=== PATIENT | female | born 1935 | race Caucasian/White ===

== ENCOUNTER 2019-12-28 05:24 | Day surgery (SDC) ==
[2019-12-23 17:42] LABS: BASO# 0.06 X1000 (0.0-0.2); BASO% 0.7 % (0.0-0.8); EOS% 2.3 % (0.0-10.0); HEMATOCRIT 35.3 % (37.0-47.0); HEMOGLOBIN 11.4 g/dL (12.0-16.0); LYMPH% 29.2 % (20.5-51.1); MCHC 32.3 g/dL (33-37); MCV 95.9 FL (81-99); MONO# 0.63 X1000 (0.11-0.59); MONO% 7.4 % (1.7-9.3); NEUT# 5.16 X1000 (1.4-6.5); NEUT% 60.4 % (42.2-75.2); PLT 321 X1000 (130-400); RBC 3.68 XMIL (4.2-5.4); RDW 14.1 % (11.5-14.5); WBC 8.55 X1000 (4.8-10.8)
--- NOTE | 2019-12-23 17:46 | EKG Report ---
Test Performed on : 12/23/2019 5:23:07 PM Test Reason : PAT Blood Pressure : / mmHG Vent. Rate : 077 BPM Atrial Rate : 077 BPM P-R Int : 124 ms QRS Dur : 086 ms QT Int : 360 ms P-R-T Axes : 082 054 067 degrees QTc Int : 407 ms Normal sinus rhythm. Possible Left atrial enlargement Borderline ECG When compared with ECG of 06-FEB-2012 11:35, Criteria for Anterior infarct are no longer present Confirmed by Den FENG, Yuri Simon ([id number]) on 12/24/2019 7:31:24 AM
[2019-12-23 17:55] LABS: HEMOGLOBIN A1C 5.4 % (4.8-6.0)
[2019-12-23 18:01] LABS: PROTIME 13.3 Seconds (11.0-16.0)
[2019-12-23 18:02] LABS: PTT 29.7 Seconds (22.3-41.8)
[2019-12-23 18:06] LABS: CALCIUM 9.3 mg/dL (8.8-10.2); CREATININE 1.6 mg/dL (0.5-0.9); POTASSIUM 3.9 mmol/L (3.5-5.1)
[2019-12-23 22:28] LABS: URINE SOURCE CLEAN CATCH
[2019-12-23 22:47] LABS: BILIRUBIN URINE NEGATIVE (NEGATIVE); BLOOD URINE TRACE (NEGATIVE); COLOR YELLOW; GLUCOSE URINE NEGATIVE (NEGATIVE); KETONE URINE NEGATIVE (NEGATIVE); LEUKOCYTES URINE NEGATIVE (NEGATIVE); NITRITE URINE NEGATIVE (NEGATIVE); PROTEIN URINE TRACE mg/dL (NEGATIVE); SP GRAVITY URINE 1.025; TURBIDITY URINE CLEAR (CLEAR); UROBILINOGEN URINE NORMAL (NORMAL)
[2019-12-23 23:04] LABS: UR EPITHELIAL CELLS <10 /HPF (<10); URINE BACTERIA NEGATIVE /HPF; URINE RBC <10 /HPF (<10); URINE WBC <10 /HPF (<10)
[2019-12-23 23:12] LABS: URINE CASTS NONE SEEN; URINE CRYSTALS NONE SEEN; URINE SMALL ROUND CELLS NONE SEEN; URINE YEAST PRESENT
[2019-12-28] MEDS ORDERED: REGLAN ONE (05:54)
[2019-12-28] MEDS ORDERED: COLACE ONE (05:54)
[2019-12-28] MEDS ORDERED: PEPCID ONE (05:54)
[2019-12-28] MEDS ORDERED: LR 1,000 ML ONE (05:55)
[2019-12-28] MEDS ORDERED: KEFZOL 1 GM/D5W 1 GM/50 ML IVPB ONE (05:55)
[2019-12-28] MEDS ORDERED: LYRICA ONE (05:55)
[2019-12-28] MEDS ORDERED: CELEBREX ONE (05:55)
[2019-12-28] MEDS ORDERED: DIPRIVAN 1% ONE ×3 (06:38→09:19)
[2019-12-28] MEDS ORDERED: DURAMORPH ONE (06:43)
[2019-12-28] MEDS ORDERED: TORADOL ONE (06:43)
[2019-12-28] MEDS ORDERED: CYKLOKAPRON 1,000 MG/NS 1,000 MG/100 ML IVPB ONE ×2 (06:43→09:02)
[2019-12-28] MEDS ORDERED: SODIUM CHLORIDE 0.9% ONE (06:43)
[2019-12-28] MEDS ORDERED: MARCAINE 0.25% PF ONE (06:43)
[2019-12-28] MEDS ORDERED: EXPAREL 1.3% ONE (06:45)
[2019-12-28] MEDS ORDERED: NEOSPORIN G.U. IRRIGANT ONE (06:45)
[2019-12-28] MEDS ORDERED: FENTANYL ONE (06:45)
[2019-12-28] MEDS ORDERED: DECADRON ONE (09:12)
[2019-12-28] MEDS ORDERED: ZOFRAN ONE (09:12)
[2019-12-28 09:19] LABS: URINE SOURCE CATH
[2019-12-28] MEDS ORDERED: NS 1,000 ML ONE (09:25)
[2019-12-28 09:33] LABS: BILIRUBIN URINE NEGATIVE (NEGATIVE); BLOOD URINE SMALL (NEGATIVE); COLOR YELLOW; GLUCOSE URINE NEGATIVE (NEGATIVE); KETONE URINE NEGATIVE (NEGATIVE); LEUKOCYTES URINE NEGATIVE (NEGATIVE); NITRITE URINE NEGATIVE (NEGATIVE); PH URINE 5.5; PROTEIN URINE NEGATIVE (NEGATIVE); TURBIDITY URINE CLEAR (CLEAR); UROBILINOGEN URINE NORMAL (NORMAL)
[2019-12-28 09:34] LABS: UR EPITHELIAL CELLS <10 /HPF (<10); URINE BACTERIA 1+ /HPF; URINE RBC 20-40 /HPF (<10); URINE WBC <10 /HPF (<10)
--- NOTE | 2019-12-28 09:55 | OPERATIVE NOTE ---
PROCEDURE DATE: 12/28/2019 PREOPERATIVE DIAGNOSIS: Right hip degenerative joint disease. POSTOPERATIVE DIAGNOSIS: Right hip degenerative joint disease. PROCEDURE PERFORMED: Right anterior total hip arthroplasty using [facility], a size 8 standard offset, -4 neck length with a 52 mm hemispherical shell, two 6.5 cancellous screws of 15 and 40 mm, and a 36 mm inside diameter acetabular liner. ANESTHESIA: Spinal. SURGEON: James Vega MD. ASSISTANT CHIEF NURSING OFFICER: SIGRID Forman. COMPLICATIONS: None. BLOOD LOSS: Minimal. DESCRIPTION OF PROCEDURE: The patient was brought to the operative suite and placed in the supine position. After successful administration of spinal anesthesia, the patient was placed on the OSI table in the usual position for a right hip. The right hip was then prepped and draped in the usual sterile fashion. A longitudinal incision was made beginning 3 cm distal and 3 cm lateral to the anterior-superior iliac spine, and extending distally and slightly laterally 8 cm. Dissected sharply through skin and subcutaneous tissue down to the tensor fascia. Tensor fascia was incised and dissected bluntly down to deep tensor fascia. Deep tensor fascia was incised and circumflex vessels electrocauterized, exposing the anterior capsule. T- capsulotomy was performed, exposing the femoral neck. Femoral neck cut was made with an oscillating saw. Femoral head was removed with a power corkscrew. The labrum and osteophytes were removed with a rongeur and sharply with a knife. The acetabulum was then serially reamed to a 52. A 52 cup was then driven into place in the proper amount of inclination and anteversion. Two 6.5 cancellous screws were placed to 40 mm superiorly and a 15 mm posterosuperiorly. Then the 36 mm inside diameter liner was locked onto the shell. Attention was then directed to the femur. It was externally rotated, extended, adducted, and elevated out of the wound with the hook on the OSI bed. The lateral neck was rongeured. The canal was serially broached to a size 8. A size 8 standard offset, -4 neck length was trialed and found to be excellent total leg length. Had excellent fit and fill of the stem and excellent offset. The trial was then removed. Definitive stem was seated on the femur and the ceramic head was seated on the Lovell taper. The hip was again reduced. It was again found to be in excellent position. The hip was copiously infiltrated with Exparel including the posterior capsule, anterior capsule, anterior musculature, and subcutaneous tissue. The anterior capsule was repaired with 0 V-Loc. The hip was copiously irrigated with normal saline containing irrigant and Vashe irrigation. Then the anterior capsule was repaired with 0 V-Loc. Skin edge was approximated with 2-0 Vicryl, 4-0 Monocryl, and a Prineo, and a sterile dressing. The patient tolerated the procedure well without complication. At the end of the procedure, all counts were correct x2. The patient was transferred to the recovery room in stable condition. cc: James Vega MD MTDD
[2019-12-28] MEDS ORDERED: DEMEROL ONE (09:59)
[2019-12-28] MEDS ORDERED: MILK OF MAGNESIA PO PRN (10:30)
[2019-12-28] MEDS ORDERED: ZOFRAN ODT PO PRN (10:30)
[2019-12-28] MEDS ORDERED: ZOFRAN IV PRN (10:30)
[2019-12-28] MEDS ORDERED: OXY IR PO PRN ×2 (10:30)
[2019-12-28] MEDS ORDERED: MORPHINE IV PRN ×3 (10:30)
[2019-12-28] MEDS: NS 1,000 ML IV SCH (10:50)
[2019-12-28] MEDS: KEFZOL 1 GM/D5W 1 GM/50 ML IVPB IV SCH (15:08)
[2019-12-28] MEDS: TYLENOL PO SCH ×2 (15:08→20:49)
[2019-12-28] MEDS: ULTRAM PO SCH ×2 (15:09→20:58)
[2019-12-28] MEDS: COLACE PO SCH (20:48)
[2019-12-28] MEDS: CELEBREX PO SCH (20:49)
[2019-12-28] MEDS: PERIDEX MT SCH (20:49)
[2019-12-28] MEDS: LYRICA PO SCH (20:50)
[2019-12-28] MEDS ORDERED: LIORESAL PO PRN (21:00)
[2019-12-28] MEDS ORDERED: REQUIP PO SCH (21:00)
[2019-12-28] MEDS ORDERED: PRINZIDE 20/12.5MG PO SCH (21:00)
[2019-12-28] MEDS ORDERED: ESTRACE PO SCH (21:00)
[2019-12-29] MEDS: NS 1,000 ML IV SCH (01:00)
[2019-12-29] MEDS: KEFZOL 1 GM/D5W 1 GM/50 ML IVPB IV SCH (01:00)
[2019-12-29] MEDS ORDERED: XARELTO PO SCH (06:00)
[2019-12-29] MEDS: ULTRAM PO SCH (06:09)
[2019-12-29] MEDS: TYLENOL PO SCH (06:10)
[2019-12-29 06:56] LABS: HEMOGLOBIN 8.8 g/dL (12.0-16.0)
[2019-12-29 07:18] LABS: CALCIUM 7.4 mg/dL (8.8-10.2); CREATININE 1.4 mg/dL (0.5-0.9); POTASSIUM 4.1 mmol/L (3.5-5.1)
[2019-12-29] MEDS ORDERED: DECADRON IV ONE (09:00)
[2019-12-29] MEDS ORDERED: PEPCID PO SCH (09:00)
[2019-12-29] MEDS: COLACE PO SCH (10:57)
[2019-12-29] MEDS: CELEBREX PO SCH (10:57)
[2019-12-29] MEDS: LYRICA PO SCH (10:57)
[2019-12-29] MEDS: PERIDEX MT SCH (10:58)
[2019-12-29 12:20] VITALS: BP 120/37
--- NOTE | 2019-12-29 21:34 | DISCHARGE SUMMARY ---
ADMISSION DATE: 12/28/2019 DISCHARGE DATE: 12/29/2019 DISCHARGE DIAGNOSIS: Right hip degenerative joint disease, status post right total hip arthroplasty. DISCHARGE MEDICATION: See medication list. DISPOSITION: The patient discharged home with home health physical therapy. Instructed to return for any signs of infection, deep venous thrombosis. Instructed to return to see Dr. Vega next . HOSPITAL COURSE: On the day of admission, patient underwent a right anterior total hip arthroplasty. Her postoperative course was unremarkable. At discharge she is afebrile, tolerating a regular diet, ambulating well with physical therapy. Her wound is clean, dry, intact without sign of infection. She is discharged home in stable condition with instructions to follow up as described above. cc: James Vega MD
== END 2019-12-29 13:26 | disposition home or self-care (01) ==
LOC: 4N 05:24 → OR 05:24
PROVIDERS: ATTEND Orthopaedic Surgery